=== PATIENT | female | born 2000 | race Two or more races ===

== ENCOUNTER → 2021-10-08 11:22 | Outpatient (BNVA) | payer OTHER, SELFPAY | PROVIDERS: Visit Provider Internal Medicine | DX: S70.01XA Contusion of right hip, initial encounter (principal); W22.03XA Walked into furniture, initial encounter | CPT/HCPCS: 99202 ==

== ENCOUNTER → 2021-10-10 12:17 | Outpatient (BNVA) | payer OTHER, SELFPAY | PROVIDERS: Visit Provider Internal Medicine | DX: S70.01XD Contusion of right hip, subsequent encounter (principal); S70.11XD Contusion of right thigh, subsequent encounter; W22.03XD Walked into furniture, subsequent encounter | CPT/HCPCS: 99213 ==